=== PATIENT | female | born 1955 | race Two or more races ===

== ENCOUNTER → 2018-05-15 | Outpatient (CLI) | payer OTHER ==
--- NOTE | 2018-05-15 10:07 | RADIOLOGY REPORT (SQ) ---
EXAM DESCRIPTION: U/S LTD DUPLEX ART/SONJA FLOW; U/S RETROPERITON LTD COMPLETED DATE/TIME: 05/15/2018 9:55 am REASON FOR STUDY: ATHEROSCLEROSIS OF RENAL ARTERY I70.1 ATHEROSCLEROSIS OF RENAL ARTERY COMPARISON: Abdominal ultrasound 10/06/2010, 05/15/2018 TECHNIQUE: Realtime and static grayscale images acquired. Selected color Doppler, velocities and spe ctral images recorded. LIMITATIONS: Midline abdominal bowel gas, renal artery origins off the aorta were difficult to visua lize FINDINGS: RIGHT KIDNEY: RENAL ARTERY VELOCITIES: At the hilum, 72 cm/sec. Segmental artery velocity 72 cm/sec. RENAL VEIN: Color doppler flow present, patent. VELOCITY RATIO: 0.7. Normal waveforms. KIDNEY: 10.3 cm in size. Mild diffuse cortical thinning and increased echogenicity from medical felisha al disease. LEFT KIDNEY: RENAL ARTERY VELOCITIES: At the hilum, 70 cm/sec. Segmental artery velocity 56 cm/sec. RENAL VEIN: Color doppler flow present, patent. VELOCITY RATIO: 0.7. Normal waveforms. KIDNEY: 9.4 cm in length. Mild diffuse cortical thinning and increased echogenicity from medical r enal disease. BLADDER: Normal. OTHER: No other significant finding. IMPRESSION: Cortical echogenicity and cortical thinning from medical renal disease. No Doppler evidence of renal artery stenosis COMMENT: NORMAL RENAL ARTERY/AORTA VELOCITY RATIO IS LESS THAN OR EQUAL TO 3.5. TECHNICAL DOCUMENTATION: JOB ID: [id number] [employer]- All Rights Reserved Reading location - IP/workstation name: [email or web address]
--- NOTE | 2018-05-15 10:07 | RADIOLOGY REPORT (SQ) ---
EXAM DESCRIPTION: U/S LTD DUPLEX ART/SONJA FLOW; U/S RETROPERITON LTD COMPLETED DATE/TIME: 05/15/2018 9:55 am REASON FOR STUDY: ATHEROSCLEROSIS OF RENAL ARTERY I70.1 ATHEROSCLEROSIS OF RENAL ARTERY COMPARISON: Abdominal ultrasound 10/06/2010, 05/15/2018 TECHNIQUE: Realtime and static grayscale images acquired. Selected color Doppler, velocities and spe ctral images recorded. LIMITATIONS: Midline abdominal bowel gas, renal artery origins off the aorta were difficult to visua lize FINDINGS: RIGHT KIDNEY: RENAL ARTERY VELOCITIES: At the hilum, 72 cm/sec. Segmental artery velocity 72 cm/sec. RENAL VEIN: Color doppler flow present, patent. VELOCITY RATIO: 0.7. Normal waveforms. KIDNEY: 10.3 cm in size. Mild diffuse cortical thinning and increased echogenicity from medical felisha al disease. LEFT KIDNEY: RENAL ARTERY VELOCITIES: At the hilum, 70 cm/sec. Segmental artery velocity 56 cm/sec. RENAL VEIN: Color doppler flow present, patent. VELOCITY RATIO: 0.7. Normal waveforms. KIDNEY: 9.4 cm in length. Mild diffuse cortical thinning and increased echogenicity from medical r enal disease. BLADDER: Normal. OTHER: No other significant finding. IMPRESSION: Cortical echogenicity and cortical thinning from medical renal disease. No Doppler evidence of renal artery stenosis COMMENT: NORMAL RENAL ARTERY/AORTA VELOCITY RATIO IS LESS THAN OR EQUAL TO 3.5. TECHNICAL DOCUMENTATION: JOB ID: [id number] [employer]- All Rights Reserved Reading location - IP/workstation name: [email or web address]
== END ==
LOC: RAD 08:43
PROVIDERS: ATTEND Internal Medicine
DX: I70.1 Atherosclerosis of renal artery (principal)
CPT/HCPCS: 76775; 93976